=== PATIENT | male | born 1960 ===

== ENCOUNTER 2022-01-19 09:50 | Emergency (ER) | payer BC ==
[~2022-01-19] VITALS: Ht 193 cm; Wt 98.0 kg
[2022-01-19 10:05] VITALS: BP 161/111
[2022-01-19 10:10] VITALS: BP 142/95
[2022-01-19] MEDS ORDERED: KEFLEX500 MG PO (10:15)
[2022-01-19 10:16] VITALS: BP 138/106
[2022-01-19 10:31] VITALS: BP 126/86
[2022-01-19 10:32] VITALS: BP 126/86
== END 2022-01-19 10:38 | disposition home or self-care (01) | DRG 914 ==
LOC: ED 09:50
DX: S67.195A Crushing injury of left ring finger, initial encounter (principal); S60.415A Abrasion of left ring finger, initial encounter; W23.1XXA Caught, crushed, jammed, or pinched between stationary objects, initial encounter